=== PATIENT | male | born 1965 | race Caucasian/White ===

== ENCOUNTER 2018-07-07 12:59 | Emergency (ER) ==
[2018-07-07 13:04] VITALS: BP 137/81; TEMP 98.2; BMI 37.8
--- NOTE | 2018-07-07 13:18 | ED.PDOC ---
General ED Provider: Dr. DION GALINDO Chief Complaint: Dizziness Stated Complaint: Slightly overheated Time Seen by Physician: 13:05 Mode of Arrival: Walk-In Information Source: Patient Exam Limitations: No limitations Referred to ED by: PCP (1 week) Nursing and Triage Documentation Reviewed and Agree: Yes Does patient meet sepsis criteria?: No System Inflammatory Response Syndrome: Not Applicable Sepsis Protocol: For patient's 13 years and over: Temp is 96.8 and below OR 101 and greater Pulse >90 BPM Resp >20/minute Acutely Altered Mental Status Are patient's symptoms suggestive of a new infection, such as: -Pneumonia -Skin, Soft Tissue -Endocarditis -UTI -Bone, Joint Infection -Implantable Device -Acute Abdominal Infection -Wound Infection -Meningitis -Blood Stream Catheter Infection -Unknown Miscellaneous Complaint Exam - Physical Examination Complaint/Exam Onset/Duration: This Morning Symptoms Are: Still present Timing: Intermittent Episodes Lasting: Minutes Initial Severity: Moderate Current Severity: Mild Location: Central-head Character: light headed Aggravating: Movement Alleviating: Rest Related History: Reports: No other known history Differential Diagnoses: Mild heat exposue/dehydration Review of Systems - Review Of Systems Constitutional: Reports: No symptoms Eyes: Reports: No symptoms Ears, Nose, Mouth, Throat: Reports: No symptoms Respiratory: Reports: No symptoms Cardiac: Reports: No symptoms GI: Reports: No symptoms : Reports: No symptoms Musculoskeletal: Reports: No symptoms Skin: Reports: No symptoms Neurological: Reports: No symptoms Endocrine: Reports: No symptoms Hematologic/Lymphatic: Reports: No symptoms All Other Systems: Reviewed and Negative Past Medical History - Past Medical History Previously Healthy: Yes Endocrine: Reports: None Cardiovascular: Reports: None Respiratory: Reports: None Hematological: Reports: None Gastrointestinal: Reports: None Genitourinary: Reports: None Neuro/Psych: Reports: None Musculoskeletal: Reports: None Cancer: Reports: None - Surgical History General Surgical History: Reports: None - Family History Family History: Reports: None - Social History Smoking Status: Former smoker Hx Substance Use: No Alcohol Screening: None - Immunizations Tetanus Shot up to Date: No Physical Exam - Physical Exam Appearance: Ill-appearing, Obese Ill-appearing: Mild Pain Distress: None Eyes: IDALMIS, EOMI, Conjunctiva clear ENT: Ears normal, Nose normal, Oropharynx normal Respiratory: Airway patent, Breath sounds clear, Breath sounds equal, Respirations nonlabored Cardiovascular: RRR, Pulses normal, No rub, No murmur GI/: Soft, Nontender, No masses, Bowel sounds normal, No Organomegaly Musculoskeletal: Normal strength, ROM intact, No edema, No calf tenderness Skin: Warm, Dry, Normal color Neurological: Sensation intact, Motor intact, Reflexes intact, Cranial nerves intact, Alert, Oriented Psychiatric: Affect appropriate, Mood appropriate Re-Evaluation - Re-Evaluation Time of Re-Evaluation: 15:20 Status: Improved Vital Signs Stable: Yes Appearance: NAD Lungs: Clear Skin: Warm and Dry Neuro: Alert and Oriented X3 CV: RRR Physician Notification - Case Discussed Physician Notified: Wilfredojgum Time of Notification: 14:30 Critical Care Note - Critical Care Note Total Time (mins): 0 Course - Course Hematology/Chemistry: 07/07/18 13:30 07/07/18 13:30 Orders, Labs, Meds: Lab Review 07/07/18 07/07/18 07/07/18 13:16 13:30 13:30 WBC 7.74 RBC 5.31 Hgb 16.2 Hct 46.6 MCV 87.8 MCH 30.5 MCHC 34.8 RDW Coeff of Mikaela 13.0 Plt Count 247 Immature Gran % (Auto) 0.3 Neut % (Auto) 45.7 Lymph % (Auto) 36.8 [place] % (Auto) 11.8 H Eos % (Auto) 4.5 Baso % (Auto) 0.9 Immature Gran # (Auto) 0.0 Neut # (Auto) 3.5 Lymph # (Auto) 2.9 [place] # (Auto) 0.9 Eos # (Auto) 0.4 Baso # (Auto) 0.1 Sodium 142 Potassium 4.0 Chloride 110 H Carbon Dioxide 23 Anion Gap 13.0 BUN 10 Creatinine 0.79 Estimated GFR (MDRD) 103.00 BUN/Creatinine Ratio 12.65 Glucose 132 H Calcium 9.4 Total Bilirubin 1.0 AST 22 ALT 31 Alkaline Phosphatase 84 Troponin I < 0.0100 Total Protein 7.1 Albumin 3.5 Globulin 3.6 Albumin/Globulin Ratio 0.97 Orders Category Date Time Status EKG-(ED ONLY) Stat CARDIO 07/07/18 13:16 Completed CBC W/ AUTO DIFF Stat LAB 07/07/18 13:30 Completed CMP [COMPREHENSIVE METABOLIC PANEL] Stat LAB 07/07/18 13:30 Completed TROPONIN I Stat LAB 07/07/18 13:16 Completed Vital Signs: Temp Pulse Resp BP Pulse Ox 07/07/18 13:00 98.2 F 90 20 137/81 98 Departure - Departure Time of Disposition: 15:00 Disposition: HOME SELF-CARE Discharge Problem: Heat exposure, Hypertension Instructions: Heat Exhaustion (ED) Condition: Good Pt referred to PMD for follow-up: Yes (Karen) IPMP verified?: No Additional Instructions: Remain in existing meds Stay well hydrated If further problems occur return Allergies/Adverse Reactions: Allergies Penicillins Allergy (Severe, Unverified 07/07/18 13:04) rash Notify drugstore Disposition Discussed With: Patient
== END 2018-07-07 15:31 | disposition home or self-care (01) ==
LOC: ED 12:59
DX: T67.9XXA Effect of heat and light, unspecified, initial encounter (principal); I10 Essential (primary) hypertension; R42 Dizziness and giddiness
CPT/HCPCS: 36415; 80053; 84484; 85025; 93005; 93010; 99283